=== PATIENT | male | born 1945 | race Caucasian/White ===

== ENCOUNTER → 2017-08-10 | Day surgery (SDC) | payer MEDICARE, OTHER ==
--- NOTE | 2017-08-09 15:04 | Diagnostic Imaging Report ---
PROCEDURE: Frontal and lateral views of the chest. COMPARISON: None. INDICATIONS: pre-operative chest x-ray for ESWL SURGERY FINDINGS: Lines/tubes: None. Lungs: The lungs are well inflated. Linear opacities in the left midlung, likely representing subsegmental atelectasis or scarring. There is no evidence of pneumonia or pulmonary edema. Pleura: There is no pleural effusion or pneumothorax. Heart and mediastinum: Cardiac silhouette is unremarkable. Pulmonary vasculature is normal. Tortuous aorta. Bones: No acute bony abnormality. Degenerative disc changes in the thoracic spine. IMPRESSION: 1. No acute cardiopulmonary abnormalities 2. Left midlung subsegmental atelectasis or scarring.. Mack Gottlieb M.D. Dictated by: Mack Gottlieb M.D. on 08/09/2017 at 15:12 Electronically approved by: Mack Gottlieb M.D. on 08/09/2017 at 15:12
[~2017-08-10] MED LIST: AMLODIPINE BESYL5 MG PO; CEFTRIAXONE SOD 1 GM VIAL ONE; DEXAMETHASONE SOD PHOS INJ 4 MG/ML VIAL IV ONE; FENTANYL CITRATE/PF 100MCG/2 ML INJ ONE; IOPAMIDOL 610MG/1ML 300 MG/ML VIAL IV ONE; LEVAQUIN500 MG PO; LIDOCAINE HCL 2% LOCAL INJ 5 ML SDV VIAL INJ ONE; MIDAZOLAM HCL 2 MG/2 ML VIAL ONE; ONDANSETRON HCL INJ 2 MG/ML VIAL IV ONE; PROPOFOL IV EMULSION 10 MG/ML 20 ML VIAL IV ONE; SEVOFLURANE INHAL SOLN 250 ML PEN BTL INH ONE; TYLENOL WITH C1 EACH PO; ULTRAM 50MG50 MG PO; ZYRTEC10 MG PO
--- NOTE | 2017-08-10 13:21 | Diagnostic Imaging Report ---
PROCEDURE:ABDOMEN-1VIEW (KUB) TECHNIQUE:Supine AP abdomen totaling 2 radiographs INDICATION:Preoperative KUB for ESWL COMPARISON:Patients [facility], CT, CT ABDOMEN/PELVIS WO, 07/03/2017, 4:22. Patients [facility], DX, ABDOMEN-1VIEW (KUB), 07/04/2017, 7:26. FINDINGS: See conclusion. CONCLUSION: 1. Right double-J ureteral stent with loops formed at the level of the renal pelvis and urinary bladder. 2. Previously seen distal right ureteral stone is questionably at the right ureterovesicular junction. No stent encrustation. 3. 9 cm left superior pole stone with adjacent 3 mm stone. 4. Punctate (2 mm less) right inferior pole stones seen on CT from July 03 are not conspicuous, likely secondary to overlying stool. 5. Multiple pelvic phleboliths. Intact skeleton with apex right scoliosis of L3. Dictated by: Pete Durbin M.D. on 08/10/2017 at 13:29 Electronically approved by: Pete Durbin M.D. on 08/10/2017 at 13:29
--- NOTE | 2017-08-10 19:50 | Operative Report ---
DATE OF PROCEDURE: August 10, 2017 PREOPERATIVE DIAGNOSES 1. Urethral stricture disease. 2. Indwelling right ureteral stent. 3. Left upper pole 8 mm renal calculus. POSTOPERATIVE DIAGNOSES 1. Urethral stricture disease. 2. Indwelling right ureteral stent. 3. Left upper pole 8 mm renal calculus. PROCEDURES 1. Cystourethroscopy with removal of right indwelling stent (entirely separate procedure done of right ureteral stent). 2. Staged left-sided shockwave lithotripsy (entirely separate procedure for enlarged left renal calculus). 3. Supervision of fluoroscopy. ANESTHESIA: General. ESTIMATED BLOOD LOSS: Minimal. COMPLICATIONS: None. INDICATIONS: Mr. Sanchez is a 72-year-old male who is status post ureteroscopy on the right side and stent placement who now presents with management to the left kidney stone as well as stent removal. He voiced understanding of the options, alternatives, risks and benefits and elected to proceed. PROCEDURE IN DETAIL: After informed consent was obtained, the patient was taken to the operative suite and placed supine on the operating table and underwent general anesthesia by the anesthesia service. He was then placed in the dorsal lithotomy position and sterilely prepped and draped in the standard fashion for cystoscopy. A 22.5-Guatemalan cystoscope was inserted per urethra. There was stricture and once again it was dilated with the scope. There was trilobar prostatic hypertrophy. Panendoscopy revealed no tumors and no stones. Both ureteral orifices were normal on identification. The right ureteral stent was extruding and this was grasped and it was removed intact. The bladder was drained. Attention was then turned to the left upper pole kidney stone. It was localized in the X, Y, Z planes. A total of 3000 shocks at a maximum power setting of 6 were delivered to the stone. The patient tolerated the procedure well and was transported to the recovery room in excellent condition. SUPERVISION OF FLUOROSCOPY: I was present throughout the entire procedure and I supervised the use of fluoroscopy for the stent removal. Job#: [id number]
== END | disposition home or self-care (01) ==
LOC: OR 12:01
PROVIDERS: ATTEND Urology
DX: N20.0 Calculus of kidney (principal); N35.9 Urethral stricture, unspecified; Z46.6 Encounter for fitting and adjustment of urinary device; N40.0 Benign prostatic hyperplasia without lower urinary tract symptoms; I10 Essential (primary) hypertension; Z01.810 Encounter for preprocedural cardiovascular examination; Z01.818 Encounter for other preprocedural examination
CPT/HCPCS: 50590; 52281; 71020; 74000; 93005; J0696; J1100; J2001; J2250; J2405; Q9967

== ENCOUNTER 2018-10-15 05:40 | Emergency (ER) | payer MEDICARE, OTHER ==
[~2018-10-15] VITALS: Ht 182.9 cm; Wt 102.5 kg
[~2018-10-15 05:40] MED LIST changes: -CEFTRIAXONE SOD 1 GM VIAL ONE; -DEXAMETHASONE SOD PHOS INJ 4 MG/ML VIAL IV ONE; -FENTANYL CITRATE/PF 100MCG/2 ML INJ ONE; -IOPAMIDOL 610MG/1ML 300 MG/ML VIAL IV ONE; -LIDOCAINE HCL 2% LOCAL INJ 5 ML SDV VIAL INJ ONE; -MIDAZOLAM HCL 2 MG/2 ML VIAL ONE; -ONDANSETRON HCL INJ 2 MG/ML VIAL IV ONE; -PROPOFOL IV EMULSION 10 MG/ML 20 ML VIAL IV ONE; -SEVOFLURANE INHAL SOLN 250 ML PEN BTL INH ONE
--- OUTSIDE RECORDS SUMMARY | 2018-10-15 05:43 | XMS REPORT ---
Author Author [facility] Address Unknown Phone Unavailable Care Team Providers Care Machine Technician Name Role Phone CAROLEE JORDAN Unavailable Unavailable DARBY, SOUHEIL Unavailable Unavailable Problems This patient has no known problems. Allergies, Adverse Reactions, Alerts This patient has no known allergies or adverse reactions. Medications This patient has no known medications. Results Test Description Test Time Test Comments Text Results Atomic Results Result Comments ABDOMEN-1VIEW (KUB) [place] [address] Patient Name: SOLEDAD SOLANO MR #: [id number] : 1945 Age/Sex: 72/M Req #: [id number] Adm Physician: Ordered by: CAROLEE JORDAN MD Report #: [id number] Location: OR Room/Bed: Procedure: [id number] DX/ABDOMEN-1VIEW (KUB) Exam Date: 08/10/17 Exam Time: 1300 REPORT STATUS: Signed PROCEDURE: ABDOMEN-1VIEW (KUB) TECHNIQUE: Supine AP abdomen totaling 2 radiographs INDICATION: Preoperative KUB for ESWL COMPARISON: [facility], CT, CT ABDOMEN/PELVIS WO, 07/03/2017, 4:22. [facility], DX, ABDOMEN-1VIEW (KUB), 07/04/2017, 7:26. FINDINGS: See conclusion. CONCLUSION: 1. Right double-J ureteral stent with loops formed at the level of the renal pelvis and urinary bladder. 2. Previously seen distal right ureteral stone is questionably at the right ureterovesicular junction. No stent encrustation. 3. 9 cm left superior pole stone with adjacent 3 mm stone. 4. Punctate (2 mm less) right inferior pole stones seen on CT from July 03 are not conspicuous, likely secondary to overlying stool. 5. Multiple pelvic phleboliths. Intact skeleton with apex right scoliosis of L3. Dictated by: Margarito Durbin M.D. on 08/10/2017 at 13:29 Electronically approved by: Margarito Durbin M.D. on 08/10/2017 at 13:29 Dictated By: MARGARITO DURBIN MD 132 Transcribed By: KATLYN on 08/10/17 1329 COPY TO: CAROLEE JORDAN MD CHEST 2 VIEWS [place] [address] Patient Name: SOLEDAD SOLANO MR #: [id number] : 1945 Age/Sex: 72/M Req #: [id number] Adm Physician: Ordered by: CAROLEE JORDAN MD Report #: [id number] Location: OR Room/Bed: Procedure: [id number] DX/CHEST 2 VIEWS Exam Date: 08/09/17 Exam Time: 1400 REPORT STATUS: Signed PROCEDURE: Frontal and lateral views of the chest. COMPARISON: None. INDICATIONS: pre-operative chest x-ray for ESWL SURGERY FINDINGS: Lines/tubes: None. Lungs: The lungs are well inflated. Linear opacities in the left midlung, likely representing subsegmental atelectasis or scarring. There is no evidence of pneumonia or pulmonary edema. Pleura: There is no pleural effusion or pneumothorax. Heart and mediastinum: Cardiac silhouette is unremarkable. Pulmonary vasculature is normal. Tortuous aorta. Bones: No acute bony abnormality. Degenerative disc changes in the thoracic spine. IMPRESSION: 1. No acute cardiopulmonary abnormalities 2. Left midlung subsegmental atelectasis or scarring.. Bonita Gottlieb M.D. Dictated by: Bonita davila M.D. on 08/09/2017 at 15:12 Electronically approved by: Bonita Gottlieb M.D. on 08/09/2017 at 15:12 Dictated By: BONITA GOTTLIEB MD 11 Transcribed By: KATLYN on 08/09/171511 COPY TO: CAROLEE JORDAN MD ABDOMEN-1VIEW (KUB) [place] [address] Patient Name: SOLEDAD SOLANO MR #: [id number] : 1945 Age/Sex: 72/M Req #: [id number] Adm Physician: BARBARA DARBY MD Ordered by: JEAN-PAUL HUNTER MD Report #: [id number] Location: [facility] Room/Bed: [place] [address] Procedure: [id number] DX/ABDOMEN-1VIEW (KUB) Exam Date: 07/04/17 Exam Time: 0730 REPORT STATUS: Signed PROCEDURE: X-RAY ABDOMEN - KUB COMPARISON: Abdomen one view 07/03/2017. CT abdomen and pelvis 07/03/2017. INDICATIONS: CALCULUS OF KIDNEY FINDINGS: There is a non- obstructed bowel-gas pattern. 7.7 mm calculus projects over the interpolar region of the left kidney. 4.2 mm calculus projects over the expected region of the distal right ureter. There are no c alcifications projected over the right renal shadow, expected course of the left ureter or bladder. There are no acute osseous abnormalities. The lung bases are clear. CONCLUSION: Left nephrolithiasis. Distal right ureteral calculus. Dictated by: Fiorella Moreno M.D. on 07/04/2017 at 8:36 Electronically approved by: Fiorella Moreno M.D. on 07/04/2017 at 8:36 Dictated By: FIORELLA MORENO MD 5 Transcribed By: KATLYN on 07/04/17835 COPY TO: JEAN-PAUL HUNTER MD ABDOMEN-1VIEW (KUB) [place] [address] Patient Name: SOLEDAD SOLANO MR #: [id number] : 1945 Age/Sex: 72/M Req #: [id number] Adm Physician: BARBARA DARBY MD Ordered by: CAROLEE JORDAN MD Report #: [id number] Location: [facility] Room/Bed: [place] [address] Procedure: [id number] DX/ABDOMEN-1VIEW (KUB) Exam Date: 07/03/17 Exam Time: 0945 REPORT STATUS: Signed EXAM: Abdomen, 1 Views INDICATION: CT abdomen and pelvis 07/03/2017. COMPARISON: None available. FINDINGS: LINES: None. Bowel: No air fluid levels.. No pneumoperitoneum.. Moderate amount of retained feces and air are noted in the colon and rectum. Left nephrolithiasis. Distal right ureteral calculus, located adjacent to the expected region of the right ureterovesicular junction. Soft tissues: Normal. Bones: No acute osseous abnormality. Degenerative changes of the lumbar spine and pelvis. Impression: Left nephrolithiasis. Distal right ureteral calculus. Signed by: Dr. Fiorella Moreno M.D. on 07/03/2017 10:22 AM Dictated By: FIORELLA MORENO MD 1022 Transcribed By: KAVIN on 07/03/17 1022 COPY TO: CAROLEE JORDAN MD CT ABDOMEN/PELVIS WO [place] [address] Patient Name: SOLEDAD SOLANO MR #: [id number] : 1945 Age/Sex: 72/M Req #: [id number] Adm Physician: Ordered by: TOMMY MORAES MD Report #: [id number] Location: ER Room/Bed: Procedure: [id number] CT/CT ABDOMEN/PELVIS WO Exam Date: 07/03/17 Exam Time: 0430 REPORT STATUS: Signed EXAM: CT Abdomen and Pelvis WITHOUT contrast INDICATION: Right flank pain COMPARISON: 11/22/2015 TECHNIQUE: Abdomen and pelvis were scanned utilizing a multidetector helical scanner from the lung base to the pubic symphysis without administration of IV contrast. Absence of intravenous contrast decreases sensitivity for detection of focal lesions and vascular pathology. Coronal and sagittal reformations were obtained. Stone protocol is performed. IV CONTRAST: None. ORAL CONTRAST: Water RADIATION DOSE: Total DLP: 725.07 mGy*cm Estimated effective dose: (DLP x 0.015 x size factor) mSv COMPLICATIONS: None FINDINGS: LINES and TUBES: None. LOWER THORAX: Unremarkable HEPATOBILIARY: No focal hepatic lesions. No biliary ductal dilation. GALLBLADDER: There are stones in the gallbladder. No wall thickening. SPLEEN: No splenomegaly. PANCREAS: No focal masses or ductal dilatation. ADRENALS: No adrenal nodules KIDNEYS/URETERS: Right-sided mild hydroureter and pelviectasis. No cystic or solid mass lesions. * Obstructive 5 mm stone in the distal right ureter on series 3, image 144. * Multiple bilateral nephrolithiasis most of them punctate between 2 and 3 mm in diameter. * Slightly increased in size 8 mm stone in the upper pole of the left kidney and a stable 4 mm stone in the upper pole of the left kidney. GI TRACT: No abnormal distention, wall thickening, or evidence of bowel obstruction. Appendix is normal. PELVIC ORGANS/BLADDER: Unremarkable. LYMPH NODES: No lymphadenopathy. VESSELS: There is mild atherosclerotic disease in the aorta and major arterial branches. PERITONEUM / RETROPERITONEUM: No free air or fluid. BONES: There are degenerative changes in the lumbar spine. SOFT TISSUES: Unremarkable. IMPRESSION: 1. Obstructive 5 mm stone in the distal right ureter resulting in mild hydroureter and pelviectasis. 2. Bilateral nephrolithiasis with progression of the largest stone in the left lower pole. 3. Cholelithiasis without evidence of acute cholecystitis Signed by: Dr. Duglas Graham M.D. on 07/03/2017 5:18 AM Dictated By: DUGLAS SELLERS MD 7 Transcribed By: KAVIN on 07/03/17517 COPY TO: TOMMY MORAES MD
[2018-10-15] MEDS ORDERED: ONDANSETRON HCL INJ 2MG/ML 2ML 2 MG/ML VIAL IV STA (05:49)
[2018-10-15] MEDS ORDERED: KETOROLAC TROMETHAMINE 30 MG/ML VIAL IV STA (05:49)
[2018-10-15] MEDS ORDERED: SODIUM CHLORIDE 0.9% 1000ML 1,000 ML IV STA (06:12)
[2018-10-15 06:15] LABS: BASOPHILS # (AUTO) 0.1 (0.0-0.1); BASOPHILS % 0.4 % (0.0-1.0); EOSINOPHILS # (AUTO) 0.1 (0.0-0.4); EOSINOPHILS % 0.8 % (0.0-6.0); HEMATOCRIT 45.5 % (38.2-49.6); LYMPHOCYTES # (AUTO) 1.7 (1.0-3.2); LYMPHOCYTES % 14.5 % (18.0-39.1); MEAN CORPUSCULAR HEMOGLOBIN 30.4 pg (28-32); MEAN CORPUSCULAR HGB CONC 35.2 g/dL (31-35); MEAN CORPUSCULAR VOLUME 86.3 fL (81-99); MONOCYTES % 8.1 % (4.4-11.3); NEUTROPHILS # (AUTO) 9.1 (2.1-6.9); NEUTROPHILS % 75.8 % (38.7-80.0); PLATELET COUNT 209 x10e3/uL (140-360); RED BLOOD COUNT 5.27 x10e6/uL (4.3-5.7); RED CELL DISTRIBUTION WIDTH 13.2 % (11.7-14.4)
[2018-10-15 06:34] LABS: ALBUMIN 4.1 g/dL (3.5-5.0); ALBUMIN/GLOBULIN RATIO 1.4 (0.8-2.0); ANION GAP 13.1 mmol/L (8-16); CALCIUM 9.3 mg/dL (8.4-10.2); CREATININE, SERUM 1.63 mg/dL (0.72-1.25); POTASSIUM 4.1 mmol/L (3.5-5.1)
[2018-10-15 06:39] LABS: CLARITY,URINE HAZY (CLEAR); COLOR,URINE YELLOW (YELLOW); KETONES,URINE TRACE (NEGATIVE); LEUKOCYTE ESTERASE ,URINE NEGATIVE (NEGATIVE); NITRITE,URINE NEGATIVE (NEGATIVE); PROTEIN,URINE DIPSTICK TRACE (NEGATIVE)
[2018-10-15 06:40] LABS: BILIRUBIN,URINE NEGATIVE (NEGATIVE); RBC,URINE 21-50 /HPF (0-5); URINE UROBILINOGEN 0.2 mg/dL (0.2 - 1); WBC,URINE (MAN) 0-5 /HPF (0-5)
--- NOTE | 2018-10-15 06:45 | NUR ---
ASSUMED CARE AT THIS TIME. PATIENT AWAKE AND ALERT SITTING IN BED, FAMILY AT BEDSIDE. RESP EVEN AND UNLABORED. SKIN WARM AND DRY. NO SIGNS OF ACUTE DISTRESS NOTED AT THIS TIME. DENIES ANY C/O AT THIS TIME. DR MACHADO AT BEDSIDE FOR RE-EVAL AND DISCUSSING THE CURRENT PLAN OF CARE WITH PATIENT AND FAMILY,VERBALIZED UNDERSTANDING.
--- NOTE | 2018-10-15 06:59 | Diagnostic Imaging Report ---
EXAM: CT Abdomen and Pelvis WITHOUT contrast INDICATION: ^stone protocol ^[id number] ^0613 ^N COMPARISON: CT dated 07/03/2017 TECHNIQUE: Abdomen and pelvis were scanned utilizing a multidetector helical scanner from the lung base to the pubic symphysis without administration of IV contrast. Absence of intravenous contrast decreases sensitivity for detection of focal lesions and vascular pathology. Coronal and sagittal reformations were obtained. Routine protocol was performed. IV CONTRAST: None ORAL CONTRAST: Water COMPLICATIONS: None RADIATION DOSE: Total DLP: 657.42 mGy*cm Estimated effective dose: (DLP x 0.015 x size factor) mSv CTDIvol has been reviewed. It is below the limits set by the Radiation Protocol Committee (RPC). FINDINGS: LINES and TUBES: None. LOWER THORAX: Paraseptal bolus unchanged changes of the lung bases. Unchanged tiny posterior right base subpleural nodule. HEPATOBILIARY: Unenhanced liver is unremarkable. No biliary ductal dilation. GALLBLADDER: Layering small calcified gallstones. No wall thickening. SPLEEN: No splenomegaly. PANCREAS: No focal masses or ductal dilatation. ADRENALS: No adrenal nodules KIDNEYS/URETERS: Multiple bilateral subcentimeter renal stones. Moderate bilateral perinephric fat stranding, left slightly right. 6 cm left ureterovesical junction calculus with mild left hydroureter necrosis. GI TRACT: No abnormal distention, wall thickening, or evidence of bowel obstruction. Scattered colonic diverticula without evidence of diverticulitis. PELVIC ORGANS/BLADDER: Unremarkable. LYMPH NODES: No lymphadenopathy. VESSELS: Unremarkable. PERITONEUM / RETROPERITONEUM: No free air or fluid. BONES: Degenerative changes of spine. SOFT TISSUES: Small fat-containing umbilical hernia. IMPRESSION: 6 mm obstructive left ureterovesical junction calculus with mild left hydroureteronephrosis and perinephric/periureteral fat stranding. Bilateral subcentimeter nonobstructive renal calculi. Cholelithiasis without evidence of cholecystitis. Signed by: Dr. Valdo Overton MD on 10/15/2018 6:56 AM
[2018-10-19] MEDS ORDERED: TAMSULOSIN HCL0.4 MG PO (11:35)
[2018-10-19] MEDS ORDERED: DOXYCYCLINE HY100 MG PO (11:35)
[2018-10-19] MEDS ORDERED: TYLENOL#4 PO (11:35)
== END 2018-10-15 07:20 | disposition home or self-care (01) ==
LOC: ER 05:40
DX: R10.32 Left lower quadrant pain (principal); R11.0 Nausea; N20.1 Calculus of ureter
CPT/HCPCS: 36415; 74176; 80053; 81001; 85025; 93005; 96374; 96375; 99284; J1885; J2405; J7030

== ENCOUNTER → 2018-10-20 | Day surgery (SDC) | payer MEDICARE, OTHER ==
--- NOTE | 2018-10-19 12:01 | Diagnostic Imaging Report ---
EXAMINATION: CHEST 2 VIEWS INDICATION: Pre-op COMPARISON: CT Abdomen/Pelvis without contrast 10/15/2018. FINDINGS: TUBES and LINES: None. LUNGS: Lungs are well inflated. There is no evidence of pneumonia or pulmonary edema. Linear subsegmental atelectasis in the left midlung. PLEURA: No pleural effusion or pneumothorax. HEART AND MEDIASTINUM: The cardiomediastinal silhouette is unremarkable. BONES AND SOFT TISSUES: No acute osseous lesion. Soft tissues are unremarkable. UPPER ABDOMEN: No free air under the diaphragm. IMPRESSION: No acute radiographic abnormality. Signed by: Dr. Alicia Rushing MD on 10/19/2018 11:58 AM
[~2018-10-20] MED LIST changes: +CEFTRIAXONE SOD 1 GM/NS 50 ML 50 ML IV ONE; +DEXAMETHASONE SOD PHOS INJ 4 MG/ML VIAL ONE; +DOXYCYCLINE HY100 MG PO; +FENTANYL CITRATE/PF 100MCG/2 ML INJ ONE; +IOPAMIDOL 610MG/1ML 300 MG/ML VIAL IV ONE; +LIDOCAINE HCL 2% LOCAL INJ 5 ML SDV VIAL INJ ONE; +MIDAZOLAM HCL 2 MG/2 ML VIAL ONE; +ONDANSETRON HCL INJ 2MG/ML 2ML 2 MG/ML VIAL ONE; +PROPOFOL IV EMULSION 10 MG/ML 20 ML VIAL ONE; +SEVOFLURANE INHAL SOLN 250 ML PEN BTL ONE; +TAMSULOSIN HCL0.4 MG PO; +TYLENOL#4 PO
[2018-10-20 11:45] VITALS: BP 124/78
--- NOTE | 2018-10-21 16:33 | Operative Report ---
DATE OF PROCEDURE: 10/20/2018 SURGEON: Jason Abrams MD PREOPERATIVE DIAGNOSES: 1. Left ureteral calculus. 2. Microscopic hematuria. POSTOPERATIVE DIAGNOSES: 1. Left ureteral calculus. 2. Microscopic hematuria. PROCEDURE: 1. Cystourethroscopy with right ureteral catheterization and right retrograde pyelogram (separate procedure for microscopic hematuria). 2. Cystourethroscopy with extraction of left ureteral calculus (entirely separate procedure for left ureteral calculus). 3. Supervision of fluoroscopy. 4. Interpretation of retrograde pyelography. ANESTHESIA: General. ESTIMATED BLOOD LOSS: Minimal. COMPLICATIONS: None. INDICATIONS: Mr. Sanchez is a 73-year-old male with a history of renal calculus, who failed a trial of passage. I had a long discussion regarding the alternatives, the risks and the benefits, including doing nothing, cystoscopy, ureteroscopy, shock wave lithotripsy, percutaneous surgery, open surgery. He voiced understanding of the options, of the alternatives, of the risks, and of the benefits and he elected to proceed. PROCEDURE IN DETAIL: After informed consent was obtained, the patient was taken to the operative suite, placed on supine on the operating table. He underwent general anesthesia by the service. He was placed in dorsal lithotomy position. Sterilely prepped and draped in standard fashion for cystoscopy. A 21-Irish cystoscope was inserted per urethra. Stone was seen in the left ureteral orifice. This was nudged out of the ureteral orifice with cystoscope. It was then grasped and removed intact. Retrograde pyelogram performed revealing dilated ureters and dilated collecting system. They were normal. The bladder was drained. The patient was awakened from anesthesia and transported to the recovery room in excellent condition with no untoward side effects noted. Supervision of fluoroscopy, interpretation of retrograde pyelography: I was present for the entire procedure and supervised the use of fluoroscopy as no radiologist was present. Attention was turned to the left and right ureters, which were catheterized. A 8-Irish cone tipped catheter was utilized to inject contrast in a retrograde fashion.As contrast was injected there were no evidence of filling defects, no evidence of hydronephrosis. IMPRESSION: Normal retrograde pyelogram. Jason Abrams MD ES/MODL /[id number] ELIZABETH
== END | disposition home or self-care (01) ==
LOC: OR 08:01
PROVIDERS: ATTEND Urology
DX: N20.1 Calculus of ureter (principal); Z01.818 Encounter for other preprocedural examination
CPT/HCPCS: 52320; 71046; 74420; 88300; J0696; J1100; J2001; J2250; J2405; J2704; Q9967; C1758

== ENCOUNTER → 2019-02-08 | Outpatient (CLI) | payer OTHER, MEDICARE ==
[~2019-02-08] MED LIST changes: -CEFTRIAXONE SOD 1 GM/NS 50 ML 50 ML IV ONE; -DEXAMETHASONE SOD PHOS INJ 4 MG/ML VIAL ONE; -FENTANYL CITRATE/PF 100MCG/2 ML INJ ONE; -IOPAMIDOL 610MG/1ML 300 MG/ML VIAL IV ONE; -LIDOCAINE HCL 2% LOCAL INJ 5 ML SDV VIAL INJ ONE; -MIDAZOLAM HCL 2 MG/2 ML VIAL ONE; -ONDANSETRON HCL INJ 2MG/ML 2ML 2 MG/ML VIAL ONE; -PROPOFOL IV EMULSION 10 MG/ML 20 ML VIAL ONE; -SEVOFLURANE INHAL SOLN 250 ML PEN BTL ONE
--- NOTE | 2019-02-08 14:52 | Diagnostic Imaging Report ---
Exam: Abdominal film Clinical History: Renal calculi Comparison: CT abdomen and pelvis 10/15/2018 DISCUSSION: 3-4 mm calculus projects over the upper pole of the left renal shadow. Additional punctate nonobstructing calculi described on the comparison examination are not identified by plain radiography. Multiple pelvic phleboliths. Bowel gas pattern is nonobstructive. Regional skeletal structures are intact with multilevel degenerative disc changes of the thoracolumbar spine. No mass effect or organomegaly. IMPRESSION: 3-4 mm left upper pole renal calculus. Additional punctate nonobstructing bilateral renal calculi described on comparison CT are not identified by plain radiography. Signed by: Dr. Gene Cole M.D. on 02/08/2019 2:49 PM
== END ==
LOC: RAD 14:02
PROVIDERS: ATTEND Urology
DX: N20.1 Calculus of ureter (principal)
CPT/HCPCS: 74018

== ENCOUNTER → 2019-05-04 | Outpatient (CLI) | payer MEDICARE, OTHER ==
--- NOTE | 2019-05-04 14:50 | Diagnostic Imaging Report ---
Exam: KUB Comparison: April 10, 2019 Clinical history: Renal calculus Findings: A 2 mm calcific density seen overlying the left upper upper pole kidney most compatible with nephrolithiasis. There is nonobstructive bowel gas pattern with retained feces in the ascending colon. The regional osseous structures are unchanged. Impression: 1. 2 mm left nephrolithiasis. Signed by: Dr. Mateo Colby MD on 05/04/2019 2:47 PM
== END ==
LOC: RAD 13:12
PROVIDERS: ATTEND Urology
DX: N20.0 Calculus of kidney (principal)
CPT/HCPCS: 74018

== ENCOUNTER → 2020-02-19 | Outpatient (CLI) | payer MEDICARE, OTHER ==
--- NOTE | 2020-02-19 13:46 | Diagnostic Imaging Report ---
EXAM: ABDOMEN-1VIEW (KUB) DATE: 02/19/2020 12:53 PM INDICATION: Kidney stones COMPARISON: FINDINGS: Bowel gas pattern is nonobstructive. Bowel gas partially secured is the renal shadows limiting evaluation. Subcentimeter calcaneal noted within the left upper quadrant which are favored to represent vascular calcifications. No radiographically evident renal calculi or urinary stones are appreciated. Suspected phleboliths noted within the pelvis, unchanged from the prior examination. No acute osseous abnormality is identified. IMPRESSION: No radiographically apparent renal calculi or urinary stones appreciated. Signed by: Dr. Jesse Sharp MD on 02/19/2020 1:43 PM
== END ==
LOC: RAD 12:35
PROVIDERS: ATTEND Urology
DX: N20.0 Calculus of kidney (principal)
CPT/HCPCS: 74018

== ENCOUNTER → 2020-05-20 | Outpatient (CLI) | payer MEDICARE, OTHER | LOC: RAD 11:46 | PROVIDERS: ATTEND Urology | DX: N20.0 Calculus of kidney (principal) | CPT/HCPCS: 74018 ==